=== PATIENT | female | born 1950 ===

== ENCOUNTER → 2020-08-04 20:07 | Outpatient (CLI) | payer MEDICARE ==
[2020-08-04 20:45] LABS: CREATINE KINASE 26 UL (21-215)
[2020-08-04 20:47] LABS: TROPONIN-I < 0.017 ng/mL (0.000-0.060)
== END | disposition home or self-care (01) ==
LOC: EDBD 20:07 → D.LABREF 20:07
PROVIDERS: ATTEND Legal Medicine
DX: R94.31 Abnormal electrocardiogram [ECG] [EKG] (principal)